=== PATIENT | male | born 1960 | race Caucasian/White ===

== ENCOUNTER 2022-03-27 11:23 | Outpatient (REF) | payer OTHER, SELFPAY ==
--- NOTE | ~2022-03-27 | XR_ITS ---
EXAMINATION: XR LUMBOSACRAL SPINE CLINICAL INFORMATION: Low back pain. COMPARISON: None TECHNIQUE: Three views of the lumbosacral spine. FINDINGS: There is normal lumbar lordosis. The vertebral heights and alignment are normal. There is loss of L3-L4, L4-L5 and L5-S1 disc heights with mild ventral and posterior spondylosis. No acute fracture, dislocation or lytic or sclerotic process seen. SI joints are symmetrical. The soft tissues are normal. XR/XR lumbar spine 2-3V IMPRESSION: Mild ventral spondylosis with loss of disc height L3-L4, L4-L5 and L5-S1 disc levels.
== END 2022-03-27 11:24 | disposition home or self-care (01) ==
LOC: HO.HMGCX 11:23
PROVIDERS: PCP Internal Medicine; Visit Provider Internal Medicine
DX: M54.50 Low back pain, unspecified (principal)
CPT/HCPCS: 72100

== ENCOUNTER 2025-06-07 02:01 | Emergency (ER) | payer OTHER, SELFPAY ==
--- NOTE | ~2025-06-07 | CT_ITS ---
CLINICAL HISTORY: AMS CT head without contrast Comparison: None provided Findings: No intra-axial mass, midline shift, hydrocephalus, or acute hemorrhage. There are mild central and cortical involutional changes.. There are mild old small-vessel ischemic changes There is no sinus or mastoid fluid. The orbits are unremarkable. No skull fracture. IMPRESSION: 1. No acute intracranial findings. This document has been electronically signed by: Mark Gabriel MD on 06/07/2025 05:57:58
--- NOTE | ~2025-06-07 | CT_ITS ---
CLINICAL HISTORY: Abd Pain; Constipation; R O Obstruction CT abdomen and pelvis with contrast Comparison: None provided Findings: No consolidation or effusion. There are hypodensities within bilateral segmental in subsegmental lower lobe pulmonary arteries. The entire chest is not included on the field of view There is a large solid partially necrotic enhancing left renal mass which measures approximately 13 cm AP diameter by 16 cm medial-lateral diameter by 17 cm superior inferior diameter. The masses surrounding and likely invading the left renal vein. The mass is likely invading the left psoas muscle. The mass abuts the medial border of the left april and upper abdominal aorta. There are extensive intra-abdominal and retroperitoneal lymph nodes largest measuring up to 2 cm. The right kidney is unremarkable. Right adrenal gland unremarkable. No focal masses within the liver or pancreas. The left renal mass abuts and possibly is invading the body and tail of the pancreas. There is nodularity of the left hemidiaphragm There is a small perisplenic left upper quadrant abdominal mildly complex, enhancing fluid collection. There is mild distention of the gallbladder. There are faint densities within the gallbladder sludge and/or small stones. There is moderate to large colonic fecal load most significant within the rectosigmoid colon. There is mild wall thickening of the rectosigmoid colon. There is mild presacral pericolonic stranding adjacent to the lower sigmoid colon and rectum There is enlargement with hypodensity bilateral common femoral and femoral veins which extends off the inferior field of view. There is a small hiatal hernia. No acute fracture. IMPRESSION: Large solid enhancing partially necrotic left renal mass which measures approximately 13 x 16 x 17 cm consistent with malignancy most likely primary renal carcinoma The mass likely invades the left psoas muscle and surrounds and likely is invading the left renal vein. The mass compresses on the inferior margin of the left adrenal gland and body and tail of the pancreas with possible invasion Likely invasion of the left psoas muscle, the mass abuts the left april and abdominal aorta Metastatic retroperitoneal and intra-abdominal adenopathy Small complex mildly enhancing left upper quadrant perisplenic fluid collection likely metastatic fluid collection Nodularity to the left hemidiaphragm likely metastatic Findings suspicious for bilateral common femoral and femoral deep venous thrombosis less likely timing of the contrast bolus and likely pulmonary emboli, less likely timing of the contrast bolus CTA chest follow-up is recommended and bilateral venous Doppler ultrasound of the lower extremities is recommended for further evaluation Fecal impaction with mild colitis pattern findings suspicious for stercoral ulceration lower sigmoid colon and rectum Chronic and incidental findings as above This document has been electronically signed by: Mark Gabriel MD on 06/07/2025 07:23:48
[2025-06-07 02:06] VITALS: BP 165/90; BP 171/77; PULSE 112; PULSE 93; RESP 20; TEMP 36.3; O2SAT 95; BMI 30.4
--- OUTSIDE RECORDS SUMMARY | 2025-06-07 03:10 | XMS_ITS | Continuity of Care Document ---
Author Organization [facility] Address [address] [facility] [address] [place] [address] Problems Unknown Problems Results Test Result Date/Time Value / Unit Interp. Refere ide Range Lab Report Abdiel [email or web address].pdf Allergies, adverse reactions, alerts No known allergies and adverse reactions Medications No administered medications reported Vital Signs No vital signs reported Social History No smoking Hx information available
--- OUTSIDE RECORDS SUMMARY | 2025-06-07 03:10 | XMS_ITS | Clinical Summary ---
Author Organization [address] Address [address] [place] [phone] Phone Care Team Providers Care Repairer Hairspring Name Role Phone Physician, Pcp Unknown Primary Care Provider Tara vailable Surgical History Surgery Date Site/Laterality Comments OTHER SURGICAL HISTORY PROCEDURE: ---- HEMORRHOIDS ---- COLONOSCOPY 08/03/13 PROCEDURE: HISTORICAL COLONOSCOPY; COMMENT: adenomas, tics and hemorrhoids; repeat in 3 yrs Medical History Medical History Date Comments Depression with anxiety 12/13/2012 DX:Depre ssion with anxiety Bipolar disorder ([facility]/HCC V2 4, [facility] V28) 12/13/2012 DX:Bipolar disorder ([facility]) Manic depression (CMS/HCC V2 4, CMS/HCC V28) 12/13/2012 DX:Manic depression ([facility]) Fatigue 12/13/2012 DX:Fatigue URI (upper respiratory infection) 12/13/2012 DX:URI (upper respiratory infection) Chronic pain 12/13/2012 DX:Chronic pain Back pain 12/13/2012 DX:Back pain Elevated BP 12/13/2012 DX:Elevated BP Family History Medical History Relation Name Comments Stomach cancer Grandparent 1 Lung cancer Grandparent 2 Relation Name Status Comments Grandparent 1 Grandparent 2 Grandparent 3 Social History Tobacco Use Types Packs/Day Years Used Date Smoking Tobacco: Every Day Cigarettes Smokeless Tobacco: Never Alcohol Use Standard Drinks/Week Comments Yes 0 (1 standard drink = 0.6 oz pur e alcohol) Sex and Gender Information Value Date Recorded Sex Assigned at Not on file Legal Sex Male 8:44 AM EST Gender Identity Not on file Sexual Orientation Not on file Obstetrics History Plan of Treatment Health Maintenance Due Date Last Done Comments Zoster Vaccines (1 of 2) 2010 Hepatitis B Vaccines (2 of 3 - 19+ 3-dose series) 08/16/2013 07/19/2013 Pneumococcal Vaccine: 50+ Ye ars (2 of 2 - PCV) 12/13/2013 12/13/2012 DTaP,Tdap,and Td Vaccines (2 - Td or Tdap) 12/13/2022 12/13/2012 Depression Screening 09/14/2024 Abdominal Aortic Aneurysm (A AA) Screen 02/22/2025 Cholesterol Screening (Lipid Panel) 02/22/2025 Colorectal Cancer Screening: Colonoscopy 02/22/2025 Hepatitis C Screening 02/22/2025 Social Influencers of Health Screening 02/22/2025 COVID-19 Vaccine (1 - 2023-2 5 season) 2025 Influenza Vaccine (#1) 2025 07/19/2013 Falls Risk Assessment 2025 RSV Immunization Adult Patie nts (1 - 1-dose 75+ series) 2035 HIB Vaccines Aged Out No longer eligi ble based on patient's age to complete this topic HPV Vaccines Aged Out No longer eligi ble based on patient's age to complete this topic Hepatitis A Vaccines Aged Out No long er eligible based on patient's age to complete this topic IPV Vaccines Aged Out No longer eligi ble based on patient's age to complete this topic MMR Vaccines Aged Out No longer eligi ble based on patient's age to complete this topic Meningococcal ACWY Vaccine Aged Out N o longer eligible based on patient's age to complete this topic Meningococcal B Vaccine Aged Out No l onger eligible based on patient's age to complete this topic RSV Immunization Patients Un chery 20 months Aged Out No longer eligible b ased on patient's age to complete this topic Varicella Vaccines Aged Out No longer eligible based on patient's age to complete this topic Insurance [facility] Member Subscriber Plan / Payer (Ef fective 2016-Present) Name:BRIAN ALFARO Relation to Subscriber:Self Name:Brian Alfaro Payer ID:[id number] Group ID:[id number] Type:Not on file Address: [address] [place] [address] Care Teams Repairer Hairspring Relationship Specialty Start Date End Date Physician, Pcp Unknown PCP - General 02/22/25
--- OUTSIDE RECORDS SUMMARY | 2025-06-07 03:10 | XMS_ITS | Continuity of Care Document ---
Author Organization [facility] Address [address] [facility] [address] [place] [address] Problems Unknown Problems Results Test Result Date/Time Value / Unit Interp. Refere nme Range Lab Report Abdiel [email or web address].pdf Allergies, adverse reactions, alerts No known allergies and adverse reactions Medications No administered medications reported Vital Signs No vital signs reported Social History No smoking Hx information available
--- OUTSIDE RECORDS SUMMARY | 2025-06-07 03:10 | XMS_ITS | Encounter Summary ---
Author Organization [facility] Address [address] [place] [address] Care Team Providers Care Lifestyle Block Farmer Name Role Phone Physician, Pcp Unknown Primary Care Provider Tara vailable Encounter Details Date Type Department Care Team (Late st Contact Info) Description 02/22/2025 Lab Requisition [facility] - Main Lab [address] [facility] [employer] [place] [address] Bora Naqvi MD [address] [place], [place] [id number] Malignant neoplasm of left renal pelvis (CMS/HCC V24, CMS/HCC V28) Social History Tobacco Use Types Packs/Day Years Used Date Smoking Tobacco: Every Day Cigarettes Smokeless Tobacco: Never Alcohol Use Standard Drinks/Week Comments Yes 0 (1 standard drink = 0.6 oz pur e alcohol) Sex and Gender Information Value Date Recorded Sex Assigned at Not on file Legal Sex Male 8:44 AM EST Gender Identity Not on file Sexual Orientation Not on file documented as of this encounter Plan of Treatment Not on file documented as of this encounter Procedures Procedure Name Priority Date/Time Associated Diagnosis Comments AP OUTSIDE CONSULT Routine 02/15/2025 12 :00 AM EDT Malignant neoplasm of left renal pelvis (CMS/HCC V24, CMS/HCC V28) documented in this encounter Results * Anatomic pathology outside consult (02/15/2025 12:00 AM EDT) Final Diagnosis A. Urine, Voided, [id number]: Negative for high grade urothelial carcinoma. Results of UroVysion fluorescence in situ hybridization (FISH) testing: CEP3: Normal CEP7: Normal CEP17: Normal LSI 9p21: Normal Interpretation: Normal profile Controls stained appropriately. Note: The results are intended as a screening device and should be interpreted in association with other clinical and pathological findings. 03/06/2025 4:40 PM EDT [facility] Clinical Information Malignant neoplasm of the left renal pelvis C65.2 Urine Cytology/FISH (now) 03/06/2025 4:40 PM EDT [facility] Gross Description A. Urine, Voided, [id number]: Received one ThinPrep slide for cytology and one ThinPrep slide for UroVysion FISH 03/06/2025 4:40 PM EDT [facility] Disclaimer Unless otherwise specified, all tissue is 10% NB formalin fixed and paraffin embedded. Technical pathology services provided by [facility] at [address] [place] [address] [address] [address] (CLIA #[id number]/Joyce Cervantes MD, Cull Grader) 03/06/2025 4:40 PM EDT [facility] Tissue Urine specimen from urethra / Unknown 02/15/2025 02/22/2025 10:41 AM EDT us Bora Naqvi MD LAB PATHOLOGY ORDERABLES Final R esult [facility] [address] [place] [address], documented in this encounter Visit Diagnoses Diagnosis Malignant neoplasm of left renal pelvis (CMS/HCC V24, CMS/HCC V28) documented in this encounter Care Teams Lifestyle Block Farmer Relationship Specialty Start Date End Date Physician, Pcp Unknown PCP - General 02/22/25 documented as of this encounter
--- NOTE | 2025-06-07 03:11 | ED.ABDPAIN ---
HPI - Abdominal Pain General Chief Complaint: Abdominal Pain Stated Complaint: ABD pain Time Seen by Provider: 06/07/25 03:07 Source: patient, family and EMS Mode of arrival: EMS Limitations: no limitations History of Present Illness ED Provider: Dick WALDEN HPI narrative: The patient is a 65-year-old male with history of stage IV kidney cancer, managed by [facility], for which the patient is currently opting to forgo radiation, chemotherapy, or other treatment. The patient is currently on hospice, hospice is being managed by [facility]. The patient's pain is being managed with methadone and oxycodone. Patient presents to the ED reporting 2 complaints, patient reports he has not had a bowel movement in the past 5 days despite taking MiraLax and senna for the past 2 days, patient reports he was previously taking senna but ran out for 4 days, received a refill 2 days ago at which time MiraLax was added. The patient reports he has had previous issues with constipation while taking pain medication. The patient denies associated fever/chills, nausea, vomiting, chest pain, shortness of breath, or difficulty urinating. The patient reports he also activated EMS today after missing his 21:30 dosing of methadone and oxycodone. Patient reports he has had recent increased confusion regarding his dosing regimens and has had difficulty managing the schedule of his medications at home. The patient reports however his primary reason for being in the ED is his constipation which he feels is increasing his abdominal discomfort, compounded by his missed medications today. Related Data Home Medications ?Medication ?Instructions ?Recorded ?Confirmed levothyroxine 175 mcg tablet 175 mcg PO DAILY 03/27/22 03/27/22 rosuvastatin 5 mg tablet 5 mg PO DAILY 03/27/22 03/27/22 Previous Rx's ?Medication ?Instructions ?Recorded cyclobenzaprine 10 mg tablet 10 mg PO BID 7 days #14 tabs 06/11/22 methylprednisolone 4 mg tablets in See Rx Instructions PO PER PKG DIR 06/11/22 a dose pack (Medrol (Fuentes)) 6 days #21 ea tramadol 50 mg tablet 50 mg PO BID PRN pain 5 days #10 06/11/22 tabs Allergies Allergy/AdvReac Type Severity Reaction Status Date / Time No Known Allergies Allergy Verified 06/07/25 02:09 Review of Systems Review of Systems Yes all other systems are reviewed and are negative PMFSH Social History Social History Smoked in Last 30 Days: Yes Use of substances other than those prescribed or required for medical reasons: No Advance Directives: Yes Advance Directives Information Provided: Yes Advance Directives on File: No Physical Exam ED Vital Signs: Vital Signs - 24 hr 06/07/25 02:06 06/07/25 04:08 Temperature 97.4 F 97.5 F Pulse Rate 93 103 H Respiratory Rate 20 20 Blood Pressure 171/77 H 171/78 H Pulse Oximetry 95 96 Oxygen Delivery Method Room Air Room Air BMI result Body Mass Index 30.4 CONSTITUTIONAL: The patient appears non-toxic, well nourished and in no acute distress. Vital signs as documented. HEAD: Atraumatic, normocephalic. EYES: EOMs grossly intact, pupils equal, conjunctiva clear, no exudate. ENT: Nares patent, no discharge. Airway patent, no audible stridor, visible mucosa is pink and moist without noted lesions. NECK: Trachea is midline, no obvious masses or gross abnormalities. CHEST: Symmetric movement, normal appearance. LUNGS: LS present and CTAB, no w/r/r. Non-labored work of breathing. CARDIAC: Regular Rhythm, S1/S2 appreciated, no murmurs, rubs or gallops. ABDOMEN: Abdomen soft x4 quadrants, positive tenderness to palpation of the left upper and lower quadrants, no palpable masses or organomegaly. : Deferred. EXTREMITIES: Normal tone, moves all extremities spontaneously without reported pain. No obvious acute injury or deformity noted. NEURO: Alert and oriented x3, CN II-XII appear grossly intact. Cerebellar Functioning grossly intact. No obvious sensory or motor deficits. Speech clear and appropriate. PSYCH: Anxious affect, appropriate eye contact, there is pressured speech with tangential thought, but otherwise appropriate response to questioning. No reported suicidality or homicidality. SKIN: Warm, dry, color appropriate, normal turgor. No rashes noted. Course Reevaluation(s) Reevaluation #1: DR. Jimenez's progress note: 65-year-old male history of stage IV renal cancer with metastases, currently under hospice service at [facility], came in for abdominal pain and constipation. Patient manage his pain with methadone and oxycodone, CT abdomen pelvis reveals intra-abdominal metastatic disease and finding consistent with stage IV renal cancer, worsening of the CT finding were discussed with the patient, patient is accepting the result as he is under hospice, patient is requesting to be discharged home. Time: 07:49 Medical Decision Making Medical Decision Making [facility] Narrative: 6:01 AM 06/07/2025 (Kim WALDEN): The patient is a 65-year-old male with history of stage IV kidney cancer, managed by [facility], for which the patient is currently opting to forgo radiation, chemotherapy, or other treatment. The patient is currently on hospice, hospice is being managed by [facility]. The patient's pain is being managed with methadone and oxycodone. Patient presents to the ED reporting 2 complaints, patient reports he has not had a bowel movement in the past 5 days despite taking MiraLax and senna for the past 2 days, patient reports he was previously taking senna but ran out for 4 days, received a refill 2 days ago at which time MiraLax was added. The patient reports he has had previous issues with constipation while taking pain medication. The patient denies associated fever/chills, nausea, vomiting, chest pain, shortness of breath, or difficulty urinating. The patient reports he also activated EMS today after missing his 21:30 dosing of methadone and oxycodone. Patient reports he has had recent increased confusion regarding his dosing regimens and has had difficulty managing the schedule of his medications at home. The patient reports however his primary reason for being in the ED is his constipation which he feels is increasing his abdominal discomfort, compounded by his missed medications today. In the ED patient appears highly anxious, with pressured speech and tangential thought but otherwise with the appropriate responses to questioning. The patient appears to perseverate on his missed medication dosing, but then revert back to a chief complaint of constipation. The patient's behavior in the ED is not his baseline per his daughter present in the ED, patient's daughter admits however she does not currently live with the patient and sees him intermittently although she does speak with him regularly on the phone and confirmed that this is not his baseline behavior. The patient's daughter is attributing the patient's change in mentation to his increasing abdominal discomfort and questions if his hospice care is ?monitoring him enough?. The patient's abdominal exam reveals tenderness of the left upper and lower quadrants. The patient was treated with his 30 mg oxycodone and was sent for CT noncontrast of the head to evaluate for brain metastasis, as well as CT of the abdomen and pelvis to evaluate for bowel obstruction versus simple constipation. CT imaging is pending at this time. Of note the patient's laboratory evaluation shows leukocytosis of 55,000, we will confer with the patient regarding baseline labs. Lab Data MDM Lab Attestation statement: I reviewed the patient's lab results. 06/07/25 04:30 06/07/25 04:30 Labs: Lab Results 06/07/25 Range/Units 04:30 WBC 55.9 H* (4.8-10.8) X10*3/uL RBC 3.27 L (4.60-5.80) X10*6/uL Hgb 9.9 L (14.0-18.0) g/dl Hct 28.9 L (42.0-52.0) % MCV 88.4 (80.0-98.0) fL MCH 30.3 (27.0-33.0) pg MCHC 34.3 (31.0-36.0) g/dl RDW 16.8 H (11.0-16.0) % Plt Count 453 H (160-400) X10*3/uL MPV 8.8 L (9.4-12.4) fL Immature Gran % (Auto) Cancelled Neut % (Auto) Cancelled Lymph % (Auto) Cancelled Door % (Auto) Cancelled Eos % (Auto) Cancelled Baso % (Auto) Cancelled Lymph # (Auto) Cancelled Door # (Auto) Cancelled Eos # (Auto) Cancelled Baso # (Auto) Cancelled Abs Immat Gran (auto) Cancelled Absolute Neuts (auto) Cancelled Absolute Nucleated RBC 0.000 (0.0-0.012) X10*3/uL Nucleated RBC % (auto) 0.0 (0.0-0.2) /100WBC Neutrophils % (Manual) 87 H (45-73) % Band Neutrophils % 6 H (3-5) % Lymphocytes % (Manual) 5 L (20-40) % Atypical Lymphs % (Man) 1 (0-6) % Monocytes % (Manual) 1 L (2-11) % Abs Neuts (Manual) 52.0 H (2.0-8.3) X10*3/uL Lymphocytes # (Manual) 2.8 (1.2-4.9) X10*3/uL Atyp Lymphs # (Manual) 0.6 x10*3/uL Monocytes # (Manual) 0.6 (0.1-1.2) X10*3/uL Toxic Granulation PRESENT Toxic Vacuolation PRESENT Platelet Estimate SLIGHTLY INCREASED (NORMAL) Plt Morphology Comment NORMAL RBC Morphology NORMAL Rouleaux PRESENT Sodium 137 (135-145) mmol/L Potassium 3.7 (3.3-5.1) mmol/L Chloride 97 (96-108) mmol/L Carbon Dioxide 30 H (22-29) mmol/L Anion Gap 14 (12-20) BUN 18 H (9-16) mg/dL Creatinine 1.10 (0.5-1.4) mg/dL Estim Creat Clear Calc 92.2 Estimated GFR > 60 Random Glucose 108 (60-115) mg/dL Calcium 10.8 H (8.4-10.2) mg/dL Total Bilirubin 0.3 (0.0-1.0) mg/dL AST 45 H (5-37) U/L ALT 24 (0-40) U/L Alkaline Phosphatase 149 H (39-117) U/L Total Protein 6.8 (6.5-8.0) g/dL Albumin 3.4 L (3.5-5.0) g/dL Radiology Impression Discussion of test interpretation with radiology: I have reviewed the radiologist's reading. Radiologist Impression: Reason for Exam: AMS CLINICAL HISTORY: AMS CT head without contrast Comparison: None provided Findings: No intra-axial mass, midline shift, hydrocephalus, or acute hemorrhage. There are mild central and cortical involutional changes.. There are mild old small-vessel ischemic changes There is no sinus or mastoid fluid. The orbits are unremarkable. No skull fracture. IMPRESSION: 1. No acute intracranial findings. This document has been electronically signed by: Mark Gabriel MD on 06/07/2025 05:57:58 Prescription Management I considered prescription management with: Pain Medication and Antibiotic Medications Administered Discontinued Medications Generic Name Dose Route Start Last Admin Trade Name Freq PRN Reason Stop Dose Admin Sodium Chloride 1,000 mls @ 999 mls/hr 06/07/25 04:15 06/07/25 07:16 Ns IV 06/07/25 05:15 Infused .Q1H1M AP Infusion Iohexol 85 ml 06/07/25 05:20 06/07/25 05:27 Iohexol 350 Mg/Ml 100 Ml Infus..Btl IV 06/07/25 05:21 85 ml ONCE ONE Administration Magnesium Citrate 300 ml 06/07/25 05:47 06/07/25 05:54 Magnesium Citrate 300 Ml Solution PO 06/07/25 05:48 300 ml ONCE ONE Administration Oxycodone HCl 30 mg 06/07/25 04:10 06/07/25 04:14 Oxycodone Hcl Immed Release 15 Mg Tablet PO 06/07/25 04:11 30 mg ONCE ONE Administration Oxycodone HCl 5 mg 06/07/25 07:15 06/07/25 07:33 Oxycodone Hcl Immed Release 5 Mg Tablet PO 06/07/25 07:16 5 mg ONCE ONE Administration Sodium Biphosphate/Sodium Phosphate 133 ml 06/07/25 05:47 06/07/25 05:54 Sodium Phosphate,Door-Dibasic 133 Ml Enema WA 06/07/25 05:48 133 ml ONCE ONE Administration Discharge Plan Discharge Clinical Impression: Metastatic disease, Chronic pain, Hospice care Patient Disposition: Home, Self-Care Instructions: Cancer Pain (ED) Prescriptions: No Action levothyroxine 175 mcg tablet 175 mcg PO DAILY rosuvastatin 5 mg tablet 5 mg PO DAILY methylprednisolone [Medrol (Fuentes)] 4 mg tablets,dose pack See Rx Instructions PO PER PKG DIR 6 Days Qty: 21 0RF Rx Instructions: PO PER PKG DIR cyclobenzaprine 10 mg tablet 10 mg PO BID 7 Days Qty: 14 0RF tramadol 50 mg tablet 50 mg PO BID PRN (Reason: pain) 5 Days Qty: 10 0RF Print Language: Nigerian
[2025-06-07 04:08] VITALS: BP 171/78; PULSE 103; RESP 20; TEMP 36.4; O2SAT 96
[2025-06-07] MEDS: oxyCODONE HCl Immed Release 15 MG TABLET 30 MG PO (04:14)
[2025-06-07 04:36] LABS: Hematocrit 28.9 % (42.0-52.0); Hemoglobin 9.9 g/dl (14.0-18.0); Mean Corpuscular HGB Conc 34.3 g/dl (31.0-36.0); Mean Corpuscular Hemoglobin 30.3 pg (27.0-33.0); Mean Corpuscular Volume 88.4 fL (80.0-98.0); NRBC Abs Auto 0.000 X10*3/uL (0.0-0.012); NRBC Pct Auto 0.0 /100WBC (0.0-0.2); Platelet Count 453 X10*3/uL (160-400); Red Blood Count 3.27 X10*6/uL (4.60-5.80); WBC ABN SCTR FOR CBC 1
[2025-06-07 04:38] LABS: White Blood Count 55.9 X10*3/uL (4.8-10.8)
[2025-06-07 04:54] LABS: Alanine Aminotransferase 24 U/L (0-40); Albumin Level 3.4 g/dL (3.5-5.0); Alkaline Phosphatase 149 U/L (39-117); Anion Gap 14 (12-20); Aspartate Amino Transferase 45 U/L (5-37); Blood Urea Nitrogen 18 mg/dL (9-16); Calcium 10.8 mg/dL (8.4-10.2); Carbon Dioxide 30 mmol/L (22-29); Chloride 97 mmol/L (96-108); Creatinine Clr Calc Pharmacy 92.2; Estimated Glomerular Filt Rate > 60; Potassium 3.7 mmol/L (3.3-5.1); Sodium 137 mmol/L (135-145); Total Protein 6.8 g/dL (6.5-8.0)
[2025-06-07 04:56] LABS: Atypical Lymph Absolute Manual 0.6 x10*3/uL; Atypical Lymphs Percent Manual 1 % (0-6); Band Neutrophils Percent 6 % (3-5); Lymphocytes Absolute Manual 2.8 X10*3/uL (1.2-4.9); Lymphocytes Percent Manual 5 % (20-40); Monocytes Absolute Manual 0.6 X10*3/uL (0.1-1.2); Monocytes Percent Manual 1 % (2-11); Neutrophils Absolute Manual 52.0 X10*3/uL (2.0-8.3); Neutrophils Percent Manual 87 % (45-73)
[2025-06-07 04:57] LABS: RBC Morphology NORMAL; Toxic Granulation PRESENT; Toxic Vacuolation PRESENT
[2025-06-07] MEDS: iohexoL 350 MG/ML 100 ML INFUS..BTL 85 ML IV (05:27)
--- NOTE | 2025-06-07 07:19 | PC.NURSE ---
Care of Pt assumed at change of shift. Pt is resting quietly. IVF and PO Mag Citrate completed. Abd CT results penidng.
[2025-06-07] MEDS: oxyCODONE HCl Immed Release 5 MG TABLET PO (07:33)
[2025-06-07 08:02] VITALS: BP 171/78; PULSE 103; RESP 20; TEMP 36.4; O2SAT 96
== END 2025-06-07 08:13 | disposition home or self-care (01) ==
PROVIDERS: Physician Assistant; Emergency Provider Emergency Medicine
DX: G89.29 Other chronic pain (principal); C64.9 Malignant neoplasm of unspecified kidney, except renal pelvis; R51.9 Headache, unspecified; R10.2 Pelvic and perineal pain; R11.2 Nausea with vomiting, unspecified; Z79.899 Other long term (current) drug therapy
CPT/HCPCS: 36415; 70450; 74177; 80053; 85007; 85027; 96360; 96361; 99285; Q9967

== ENCOUNTER → 2025-06-07 04:10 | Outpatient (BNV) | payer OTHER, SELFPAY | PROVIDERS: Emergency Provider Emergency Medicine; Visit Provider Radiology Diagnostic Radiology | DX: N28.89 Other specified disorders of kidney and ureter (principal); R59.0 Localized enlarged lymph nodes; R19.5 Other fecal abnormalities; R41.82 Altered mental status, unspecified | CPT/HCPCS: 70450; 74177 ==